=== PATIENT | female | born 1950 | race Caucasian/White ===

== ENCOUNTER → 2018-04-01 | Outpatient (CLI) | payer MEDICARE ==
--- NOTE | 2018-04-01 10:31 | CT ---
EXAMINATION TYPE: CT chest wo con DATE OF EXAM: 04/01/2018 COMPARISON: CT chest 05/01/2017 HISTORY: Lung Nodule, AAA without rupture CT DLP: 659 mGycm. Automated Exposure Control for Dose Reduction was Utilized. TECHNIQUE: CT scan of the thorax is performed without IV contrast. FINDINGS: LUNGS: The lungs are grossly clear, there is no concerning parenchymal mass or nodule identified. Luis A cified left upper lobe nodule is stable. There is no pleural effusion or pneumothorax seen. The tra cheobronchial tree is patent. MEDIASTINUM: Lack of IV contrast is noted to limit evaluation for mediastinal and especially hilar ad enopathy. There are no definitive greater than 1 cm hilar or mediastinal lymph nodes. Calcified medi astinal node in the aorticopulmonary window is stable. No cardiomegaly or pericardial effusion is see n. OTHER: Aorta shows a a measurement of approximately 4.1 cm similar to prior exam in the ascending aor ta. Left kidney is not seen, postop changes are present, patient is status post cholecystectomy.. Esteban cending aorta shows normal caliber. No significant interval change. IMPRESSION: Stable exam, probable old granulomatous disease. Ascending aortic aneurysm. Noncontrast e xam could limit sensitivity.
== END | disposition home or self-care (01) ==
LOC: RADCTMAIN 08:58
PROVIDERS: ATTEND Internal Medicine Geriatric Medicine
DX: R91.1 Solitary pulmonary nodule (principal); I71.2 Thoracic aortic aneurysm, without rupture
CPT/HCPCS: 71250

== ENCOUNTER → 2019-04-29 | Outpatient (CLI) | payer MEDICARE ==
[2019-04-29 16:40] LABS: Basophils # (A) 0.1 k/uL (0-0.2); Basophils % (A) 1 %; Eosinophils # (A) 0.2 k/uL (0-0.7); Eosinophils % (A) 2 %; HCT 41.5 % (34.0-46.0); HGB 14.4 gm/dL (11.4-16.0); Lymphocytes # (A) 2.1 k/uL (1.0-4.8); Lymphocytes % (A) 29 %; MCHC 34.8 g/dL (31.0-37.0); MCV 94.9 fL (80.0-100.0); Mean Platelet Volume 6.5; Monocytes # (A) 0.4 k/uL (0-1.0); Monocytes % (A) 6 %; Neutrophils # (A) 4.3 k/uL (1.3-7.7); Neutrophils % (A) 59 %; Platelet Count 276 k/uL (150-450); RBC 4.37 m/uL (3.80-5.40); RDW 12.5 % (11.5-15.5); WBC 7.3 k/uL (3.8-10.6)
[2019-04-29 16:52] LABS: Albumin 4.1 g/dL (3.5-5.0); Calcium 9.7 mg/dL (8.4-10.2); Potassium 3.8 mmol/L (3.5-5.1); Total Bilirubin 0.5 mg/dL (0.2-1.3)
[2019-04-30 01:04] LABS: Hemoglobin A1C 5.2 % (4.0-6.0)
--- NOTE | 2019-04-30 09:26 | CT ---
EXAMINATION TYPE: CT chest w con DATE OF EXAM: 04/29/2019 COMPARISON: 04/01/2018 HISTORY: Aneurysm CT DLP: 733 mGycm, Automated exposure control for dose reduction was used. CONTRAST: Performed injected with 80 mL of Isovue 300. TECHNIQUE: Axial images were obtained at 5 mm thick sections. Reconstructed images are reviewed on [employer] computer in the coronal plane. FINDINGS: Portion of the thyroid visualized is normal. There is a 0.7 cm left apical nodule was present previously and is stable No enlarged mediastinal or hilar adenopathy is evident. The ascending aorta diameter at the level o f the main pulmonary artery is 4.2 cm. The main pulmonary artery diameter at the bifurcation is 2.0 cm. The aorta at the aortic root is 2.9 cm. The aorta at the aortic arch is 2.7 cm. Aorta at the diap hragm is 2.[address] sections are obtained through the upper abdomen. Abdomen is essentially unremarkable. Note is made only one kidney is within the field of view. IMPRESSIONS: 1. Ascending thoracic aortic aneurysm measuring 4.2 cm, stable from comparison. 2. 0.7 cm left apical nodule, stable.
== END | disposition home or self-care (01) ==
LOC: RADCTMAIN 15:59
PROVIDERS: ATTEND Internal Medicine Geriatric Medicine
DX: I71.2 Thoracic aortic aneurysm, without rupture (principal); R91.1 Solitary pulmonary nodule; E88.81 Metabolic syndrome and other insulin resistance; E11.65 Type 2 diabetes mellitus with hyperglycemia; C64.9 Malignant neoplasm of unspecified kidney, except renal pelvis; Z00.00 Encounter for general adult medical examination without abnormal findings
CPT/HCPCS: 80061; 80053; 84443; 85025; 83036; 71260; 36415; Q9967

== ENCOUNTER → 2020-04-07 | Outpatient (CLI) | payer MEDICARE ==
--- NOTE | 2020-04-07 17:24 | MR ---
MRI right hip HISTORY: M 25.5 x 1, M 54.9, right hip pain and difficulty walking Correlation AP pelvis 03/31/2019 Multiplanar multisequence imaging obtained through the pelvis with small [id number] imaging to the right hip Within the acetabular roof there is subchondral geode suspected, T2 bright foci are lobular, is inter mediate signal T1-weighted sequences. Difficult to exclude labral tear, there is lobular T2 bright fo ci extending anterior to the labrum which may be indicative of Labral cyst and labral tear. There is some artifact present. Suspect grade 2 to grade III chondromala jalil. At the level of the gluteus tendon insertion laterally there is abnormal T2 bright signal presen t, no evident sizable hip joint effusion. Some increased signal present at the level of the tendon in sertion Fibroid uterus noted incidentally. Nabothian cysts are present. Diverticular change noted within the sigmoid colon. No free fluid within the pelvis. IMPRESSION: Findings consistent with osteoarthritis right hip, possible labral tear, para labral cyst . Findings consistent with gluteus medius partial tendon tear or strain.
--- NOTE | 2020-04-08 07:29 | MR ---
EXAMINATION TYPE: MR lumbar spine wo/w con DATE OF EXAM: 04/07/2020 COMPARISON: NONE HISTORY: Right hip and lower back pain, difficulty walking TECHNIQUE: Multiplanar, multisequence images of the lumbar spine is performed without and with IV contrast, util izing 10 mL intravenous Gadavist FINDINGS: Sagittal images of the lumbar spine show vertebral body heights and alignment to appear sat isfactory. Multilevel disc desiccation with mild disc space narrowing L2-L3 level. Mild to moderate m ultilevel anterior spurring The conus medullaris is normal in position and signal ending T12-L1 disc space level. The bone marrow signal intensity show some overall heterogeneity. No suspicious postco ntrast enhancement. A few small Tarlov cysts posterior S2 level sagittal image 9 are noted. Axial images at T12-L1 and L1-L2 levels show mild facet degenerative changes bilaterally. There is so me effacement of the posterior lateral thecal sac L1-L2 level on axial image 23. Axial images at the L2-L3 level show mild facet degenerative changes. There is small focal left jorge luis inal disc protrusion with bilateral neural foramina remain patent Axial images at the L3-L4 level show mild to borderline moderate left greater than right facet degene rative changes. There is mild broad disc bulge with left focal foraminal disc protrusion. Bilateral n eural foramina remain patent. Spinal canal is preserved. Axial images at the L4-L5 level show moderate facet degenerative changes bilaterally. There is mild b road-based posterior disc protrusion with spinal canal is preserved. Bilateral neural foraminal remai n patent. Axial images at the L5-S1 level show moderate facet arthropathy bilaterally. Spinal canal is preserve d. Bilateral neural foramina are patent. 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 IMPRESSION: Multilevel degenerative changes in the lumbar spine as detailed above. No suspicious foca l disc herniation seen to account for patient's right-sided radiculopathy type symptoms however.
== END | disposition home or self-care (01) ==
LOC: RADMRIMAIN 15:25
PROVIDERS: ATTEND Nurse Practitioner Gerontology
DX: M47.816 Spondylosis without myelopathy or radiculopathy, lumbar region (principal); M47.817 Spondylosis without myelopathy or radiculopathy, lumbosacral region; M47.815 Spondylosis without myelopathy or radiculopathy, thoracolumbar region; M25.551 Pain in right hip
CPT/HCPCS: 72158; 73721; A9585

== ENCOUNTER → 2020-04-27 | Outpatient (CLI) | payer MEDICARE ==
--- NOTE | 2020-04-27 12:16 | CT ---
EXAMINATION TYPE: CT chest w con DATE OF EXAM: 04/27/2020 COMPARISON: Prior CT chest 04/29/2019 HISTORY: Thoracic aneurysm F/U CT DLP: 453.1 mGycm Automated exposure control for dose reduction was used. CONTRAST: CT scan of the chest is performed with IV Contrast, patient injected with 80 mL of Isovue 300. FINDINGS: LUNGS: The lungs are grossly clear, there is no concerning parenchymal mass or nodule identified. Lef t upper lobe lung nodule is calcified as on prior exam and likely represents granuloma, is stable Th ere is no pleural effusion or pneumothorax seen. The tracheobronchial tree is patent. MEDIASTINUM: There are no greater than 1 cm hilar or mediastinal lymph nodes. No pericardial effusi on is seen. AORTA: Ascending aorta measures approximately 4.2 cm, proximal descending aorta measures 2.4 cm, the aorta at the hiatus level measures approximately 2.3 cm. OTHER: Hypertrophic changes in the spine are again noted, there is multilevel spondylosis, mild spin al curvature. Patient is post cholecystectomy. IMPRESSION: Stable exam.
== END | disposition home or self-care (01) ==
LOC: RADCTMAIN 08:38
PROVIDERS: ATTEND Internal Medicine Geriatric Medicine
DX: I71.2 Thoracic aortic aneurysm, without rupture (principal)
CPT/HCPCS: 82565; 84520; 71260; 36415; Q9967

== ENCOUNTER → 2021-05-30 | Outpatient (CLI) | payer MEDICARE ==
--- NOTE | 2021-05-30 11:19 | CT ---
EXAMINATION TYPE: CT chest wo/w con DATE OF EXAM: 05/30/2021 COMPARISON: 04/27/2020 HISTORY: Thoracic aortic aneurysm CT DLP: 943.4 mGycm, Automated exposure control for dose reduction was used. CONTRAST: Performed injected with 80 mL of Isovue 300. TECHNIQUE: Axial images were obtained at 5 mm thick sections. Reconstructed images are reviewed on [employer] computer in the coronal plane. FINDINGS: Portion of the thyroid visualized is normal. Aorta: The aorta at the aortic root measures 3.2 cm. The aorta at the main pulmonary artery is 4.0 cm . Oblique dimension of the ascending thoracic aorta is 4.1 cm. This is stable from comparison. Transv erse dimension of the aortic arch is 2.9 cm. The aorta above the diaphragm is 2.1 cm. Calcified granuloma is some mild infiltrate is within the lingula at the base in the medial left apex . No enlarged mediastinal or hilar adenopathy is evident. The ascending aorta diameter at the level o f the main pulmonary artery is 4.0 cm. The main pulmonary artery diameter at the bifurcation is 2.[address] sections are obtained through the upper abdomen. Abdomen is essentially unremarkable. IMPRESSIONS: 1. Stable ascending thoracic aortic aneurysm measuring 4.1 cm.
== END | disposition home or self-care (01) ==
LOC: RADCTMAIN 07:29
PROVIDERS: ATTEND Internal Medicine Geriatric Medicine
DX: I71.2 Thoracic aortic aneurysm, without rupture (principal)
CPT/HCPCS: 82565; 84520; 71270; 36415; Q9967

== ENCOUNTER → 2022-06-13 | Outpatient (CLI) | payer MEDICARE ==
--- NOTE | 2022-06-13 16:58 | CT ---
EXAMINATION TYPE: CT chest wo/w con DATE OF EXAM: 06/13/2022 COMPARISON: Most recent CT May 30, 2021 and older studies HISTORY: Thoracic aortic aneurysm. CT DLP: 879 mGycm. Automated Exposure Control for Dose Reduction was Utilized. CONTRAST: CTA scan of the thorax is performed without and with IV Contrast, patient injected with 100 mL of Iso safia 300, aneurysm protocol. 3-D reconstructed Images are created on independent workstation and revie wed. FINDINGS: LUNGS: Mild linear scarring in the lung bases again seen. There is no pleural effusion or pneumotho rax seen. The tracheobronchial tree is patent. MEDIASTINUM: Noncontrast images show no suspicious hyperdense material to suggest intramural hematoma . There is calcification at the level of the aortic valve. Aorta measures 3.3 cm of the aorta. Ascend ing aorta measures up to 4.0 cm. There is three-vessel origin from the aortic arch. No aneurysmal ext ension into the arch or descending aorta. There are no greater than 1 cm hilar or mediastinal lymph n odes. No cardiomegaly or pericardial effusion is seen. OTHER: Cholecystectomy clips are redemonstrated. Left kidney not seen suspected surgically or congeni tally absent. Correlate clinically. Underlying scoliosis with multilevel spurring in the spine is red emonstrated. IMPRESSION: Stable ascending aortic aneurysm up to 4.0 cm when accounting for technical differences.
== END | disposition home or self-care (01) ==
LOC: RADCTMAIN 15:53
PROVIDERS: ATTEND Internal Medicine Geriatric Medicine
DX: I71.21 Aneurysm of the ascending aorta, without rupture (principal); I71.20 Thoracic aortic aneurysm, without rupture, unspecified
CPT/HCPCS: 71270; Q9967

== ENCOUNTER → 2023-05-31 | Outpatient (CLI) | payer MEDICARE ==
[2023-05-31 10:59] LABS: African American GFR (CKD) 78 (>60 ml/min/1.73 sqM); Blood Urea Nitrogen 16 mg/dL (7-17); Non-African American GFR(CKD) 68 (>60 ml/min/1.73 sqM)
--- NOTE | 2023-05-31 11:58 | CT ---
EXAMINATION: CT CHEST WITHOUT AND WITH IV CONTRAST DATE OF EXAMINATION: 05/31/2023. COMPARISON: None available. INDICATION: Thoracic aortic aneurysm. PROCEDURE: Axial CT of the chest was performed without and with contrast. Coronal and sagittal refo rmats were performed. CT dose lowering techniques were used, to include: automated exposure control, adjustment for patient size, and/or use of iterative reconstruction. 100 mL of Isovue-300 was given i ntravenously FINDINGS: CHEST: Mediastinum and Emma: There is no axillary, mediastinal or hilar lymphadenopathy. Pleural and Pericardial spaces: There are no pleural or pericardial effusions. Cardiovascular: There is mild dilation of the ascending thoracic aorta up to 4.3 cm in diameter. No e vidence of aortic dissection is seen. Pulmonary Artery: There are no central pulmonary arterial filling defects. Lung Parenchyma and Airways: The lungs are clear. Impression: 1. Unchanged appearance to the mildly dilated ascending thoracic aorta up to 4.3 cm. And 2. No acute findings otherwise seen.
== END | disposition home or self-care (01) ==
LOC: RADCTMAIN 09:58
PROVIDERS: ATTEND Internal Medicine Geriatric Medicine
DX: I71.21 Aneurysm of the ascending aorta, without rupture (principal)
CPT/HCPCS: 82565; 84520; 71270; 36415; Q9967